=== PATIENT | female | born 1945 | race Hispanic/Latino ===

== ENCOUNTER 2023-06-04 07:29 | Emergency (ER) | payer OTHER, SELFPAY ==
[2023-06-04] MEDS ORDERED: dexAMETHasone 10 MG/ML VIAL ONE (08:16)
--- NOTE | 2023-06-04 09:06 | EDPHYS ---
Physician Documentation [facility] Name: Ct Greenberg Age: 77 yrs Sex: Female : 1945 Arrival Date: 06/04/2023 Time: 07:29 Bed 5 Private MD: ED Physician Davey Arroyo HPI: 06/04 08:05 This 77 yrs old Female presents to ER via Ambulatory with complaints of Sore sb4 Throat. 08:05 The patient presents with sore throat. Onset: The symptoms/episode began/occurred 3 sb4 day(s) ago. Associated signs and symptoms: Pertinent positives: rhinorrhea, Pertinent negatives chest pain, cough, fever, nausea. 77 year old female with hypertension, allergies, and asthma presents from out of town with complaints of sore throat and general FLS. She states that she typically has a weekly allergy shot that she did not get on Friday because she is from out of town. Denies chest pain, shortness of breath, fever. Historical: - Allergies: 07:49 No Known Allergies; ll1 - PMHx: 07:49 Hypertensive disorder; Asthma; seasonal allergies; ll1 - PSHx: 07:49 None; ll1 - Immunization history:: Client reports receiving the 2nd dose of the Covid vaccine. - Social history:: Smoking status: Patient denies any tobacco usage or history of. ROS: 08:05 Constitutional: Negative for fever, chills, and weight loss. sb4 08:05 ENT: Positive for rhinorrhea, sore throat. 08:05 All other systems are negative. Exam: 08:05 Constitutional: This is a well developed, well nourished patient who is awake, alert, sb4 and in no acute distress. Head/Face: Normocephalic, atraumatic. Cardiovascular: Regular rate and rhythm with a normal S1 and S2. Respiratory: Lungs have equal breath sounds bilaterally, clear to auscultation and percussion. No rales, rhonchi or wheezes noted. No increased work of breathing, no retractions or nasal flaring. Abdomen/GI: Soft, non-tender, no distension. Skin: Warm, dry with normal turgor. Normal color with no rashes, no lesions, and no evidence of cellulitis. MS/ Extremity: Pulses equal, no cyanosis. Neurovascular intact. Full, normal range of motion. 08:05 ENT: Posterior pharynx: erythema, that is mild. Vital Signs: 07:40 BP 164 / 88; Pulse 68; Resp 18; Pulse Ox 99% ; ko1 07:49 BP 180 / 73; Pulse 63; Resp 16; Temp 98.3; Pulse Ox 100% on R/A; Weight 58.97 kg; ll1 Height 5 ft. 3 in. ; Pain 9/10; 07:49 Body Mass Index 23.03 (58.97 kg, 160.02 cm) ll1 07:49 Pain Scale: Adult ll1 MDM: 08:01 Patient medically screened. sb4 08:05 Differential diagnosis: Allergic rhinitis, epiglottitis, efrem-haskins virus, group A sb4 strep tonsillitis, laryngitis, mononucleosis, pharyngitis, tonsillitis, upper respiratory infection, viral syndrome. 09:05 Data reviewed: vital signs, nurses notes, lab test result(s), Flu: positive and as a sb4 result, I will discharge patient. Historians other than the Patient: Spouse/Significant Other: . Care significantly affected by the following chronic conditions: Hypertension. Counseling: I had a detailed discussion with the patient and/or guardian regarding: the historical points, exam findings, and any diagnostic results supporting the discharge/admit diagnosis, the presence of at least one elevated blood pressure reading (>120/80) during this emergency department visit, lab results, to return to the emergency department if symptoms worsen or persist or if there are any questions or concerns that arise at home. 06/04 08:05 Order name: COVID-19 SARS RT PCR; Complete Time: 09:03 sb4 06/04 08:05 Order name: Flu; Complete Time: 08:45 sb4 06/04 08:05 Order name: Strep sb4 06/04 08:41 Order name: Throat Culture EDMS Administered Medications: 08:16 Drug: Dexamethasone IM 10 mg Route: IM; Site: right deltoid; ko1 Disposition: 16:32 Co-signature as Attending Physician, Davey Arroyo MD I reviewed the patient's care rt provided by the Advanced Practice Provider and agree with the diagnosis and treatment plan. Disposition Summary: 06/04/23 09:06 Discharge Ordered Location: Home sb4 Problem: an ongoing problem sb4 Symptoms: are unchanged sb4 Condition: Stable sb4 Diagnosis - Influenza due to other identified influenza virus with other respiratory sb4 manifestations Followup: sb4 - With: Private Physician - When: As needed - Reason: Recheck today's complaints, Continuance of care, Re-evaluation by your physician Discharge Instructions: - Discharge Summary Sheet sb4 - Influenza, Adult, [id number] sb4 Forms: - Medication Reconciliation Form sb4 - Thank You Letter sb4 - Antibiotic Education sb4 - Prescription Opioid Use sb4 - Patient Portal Instructions sb4 Prescriptions: - Tamiflu 30 mg Oral Capsule - take 1 capsule by ORAL route every 12 hours for 5 days; 10 capsule; Refills: 0, sb4 Product Selection Permitted Signatures: Dispatcher [employer] Lili Moura RN RN ll1 Tracey Fisher RN RN ko1 Mary Lou Delgadillo, PALulu GRIFFITH sb4 Davey Arroyo MD MD rt
--- NOTE | 2023-06-04 09:06 | ER ---
Nurse's Notes [facility] Name: Ct Greenberg Age: 77 yrs Sex: Female : 1945 Arrival Date: 06/04/2023 Time: 07:29 Bed 5 Private MD: Diagnosis: Influenza due to other identified influenza virus with other respiratory manifestations Presentation: 06/04 07:49 Chief complaint: Patient states: Sore throat started Friday evening. + ll1 cough/congestion. No fever. Coronavirus screen: Vaccine status: Patient reports receiving the 2nd dose of the covid vaccine. Client denies travel out of the [place] in the last 14 days. congestion, cough unrelated to allergies, sore throat, Client presents with at least one sign or symptom that may indicate coronavirus-19. Standard/surgical mask placed on the client. Ebola Screen: Patient denies travel to an Ebola-affected area in the 21 days before illness onset. Initial Sepsis Screen: Does the patient meet any 2 criteria? No. Patient's initial sepsis screen is negative. Does the patient have a suspected source of infection? Yes: Other: sore throat. Risk Assessment: Do you want to hurt yourself or someone else? Patient reports no desire to harm self or others. Onset of symptoms was June 01, 2023. 07:49 Method Of Arrival: Ambulatory ll1 07:49 Acuity: AMERICO 3 ll1 Triage Assessment: 07:51 General: Appears in no apparent distress. Behavior is calm, cooperative, appropriate ll1 for age. Pain: Complains of pain in throat Quality of pain is described as aching. EENT: Reports nasal congestion pain when swallowing. Respiratory: Reports cough that is. Historical: - Allergies: 07:49 No Known Allergies; ll1 - PMHx: 07:49 Hypertensive disorder; Asthma; seasonal allergies; ll1 - PSHx: 07:49 None; ll1 - Immunization history:: Client reports receiving the 2nd dose of the Covid vaccine. - Social history:: Smoking status: Patient denies any tobacco usage or history of. Screenin:40 [facility] ED Fall Risk Assessment (Adult) History of falling in the last 3 months, ko1 including since admission No falls in past 3 months (0 pts) Confusion or Disorientation No (0 pts) Intoxicated or Sedated No (0 pts) Impaired Gait No (0 pts) Mobility Assist Device Used No (0 pt) Altered Elimination No (0 pt) Score/Fall Risk Level 0 - 2 = Low Risk Oriented to surroundings, Maintained a safe environment, Educated pt \T\ family on fall prevention, incl call for assistance when getting out of bed, Assessed \T\ reinforced patient's understanding of fall precautions, Provided non-skid footwear, Hourly rounding (assess needs \T\ fall precautionary measures) done, Used ambulatory aids as needed (educated on \T\ assisted with), Used gait belt as appropriate. Abuse screen: Denies threats or abuse. Denies injuries from another. Nutritional screening: No deficits noted. Tuberculosis screening: No symptoms or risk factors identified. Assessment: 07:40 General: Appears in no apparent distress. Behavior is calm, cooperative, appropriate ko1 for age. Pain: Complains of pain in throat. Neuro: No deficits noted. Cardiovascular: No deficits noted. Respiratory: Reports cough that is non-productive, Airway is patent Respiratory effort is even, unlabored, Breath sounds are clear bilaterally. GI: No deficits noted. : No deficits noted. EENT: Nares with drainage noted Throat is pink. Derm: No deficits noted. Musculoskeletal: No deficits noted. Vital Signs: 07:40 BP 164 / 88; Pulse 68; Resp 18; Pulse Ox 99% ; ko1 07:49 BP 180 / 73; Pulse 63; Resp 16; Temp 98.3; Pulse Ox 100% on R/A; Weight 58.97 kg; ll1 Height 5 ft. 3 in. ; Pain 9/10; 07:49 Body Mass Index 23.03 (58.97 kg, 160.02 cm) ll1 07:49 Pain Scale: Adult ll1 ED Course: 07:33 Patient arrived in ED. ts1 07:40 Arm band placed on Patient placed in an exam room, on a stretcher. ll1 07:40 Patient has correct armband on for positive identification. Bed in low position. Call ko1 light in reach. Side rails up X 1. Provided Education on: NA. Pulse ox on. NIBP on. Door closed. Noise minimized. Warm blanket given. 07:40 No provider procedures requiring assistance completed. Patient did not have IV access ko1 during this emergency room visit. 07:41 Dennis Chacon, RN is Primary Nurse. bp 07:51 Triage completed. ll1 08:01 Mary Lou Delgadillo PA-C is PHCP. sb4 08:01 Davey Arroyo MD is Attending Physician. sb4 08:16 Strep Sent. ko1 08:16 Flu Sent. ko1 08:16 COVID-19 SARS RT PCR Sent. ko1 Administered Medications: 08:16 Drug: Dexamethasone IM 10 mg Route: IM; Site: right deltoid; ko1 Medication: 07:40 VIS not applicable for this client. ko1 Outcome: 07:40 Discharged to home ambulatory. ko1 07:40 Condition: stable 07:40 Discharge instructions given to patient, family, Instructed on discharge instructions, follow up and referral plans. medication usage, Demonstrated understanding of instructions, follow-up care, medications, Prescriptions given X 1. 09:06 Discharge ordered by . sb4 09:21 Patient left the ED. ko1 Signatures: Dennis Chacon, RN RN bp Lili Edwards RN RN ll1 Tracey Fisher RN RN ko1 Mary Lou Delgadillo PA-C PA-C sb4 Imani Johnson PAS PAS ts1
[2023-06-04 09:28] VITALS: BP 180/73; TEMP 98.3; O2SAT 100
== END 2023-06-04 09:21 | disposition home or self-care (01) ==
LOC: ER 07:29
DX: J10.1 Influenza due to other identified influenza virus with other respiratory manifestations (principal); Z20.822 Contact with and (suspected) exposure to COVID-19; I10 Essential (primary) hypertension
CPT/HCPCS: 87070; 87081; 87635; 87804 ×2; J1100; 96372; 99284